=== PATIENT | female | born 1980 | race Caucasian/White ===

== ENCOUNTER 2016-05-21 19:10 | Emergency (ER) | payer OTHER ==
[2016-05-21 17:40] LABS: INFLUENZA A NEG (NEG); INFLUENZA B NEG (NEG)
[2016-05-21 19:01] LABS: URINE SOURCE CLEAN CATCH
[2016-05-21 19:09] LABS: URINE APPEARANCE CLEAR; URINE BILIRUBIN NEG (NEG); URINE BLOOD 1+ (NEG); URINE COLOR YELLOW; URINE GLUCOSE NEG (NEG); URINE KETONE TRACE (NEG); URINE LEUKOCYTE ESTERASE TRACE (NEG); URINE NITRATE NEG (NEG); URINE PROTEIN TRACE (NEG)
[~2016-05-21 19:10] MED LIST: AMOXICILLIN PO; FLEXERIL PO; FLEXERIL10 MG PO; KETOPROFEN PO; LORTAB 10-5001 EACH PO; MEDROL DOSEPAK4 MG DOB; MEDROL PO; MEDROL4 MG/DOSE- PO; NO MEDICATIONS; ORUDIS75 M1 PO; PREDNISONE PO; ULTRAM PO; VOLTAREN75 MG PO; ZITHROMAX500 MG PO
[2016-05-21 19:12] LABS: CULTURE INDICATED? YES; URINE BACTERIA AUWI NEG (NEGATIVE); URINE SQUAMOUS EPITHELIAL CELL OCC /[HPF]
[2016-05-21 19:25] LABS: URINE MUCUS PRESENT
== END 2016-05-21 20:18 | disposition home or self-care (01) ==
LOC: CED 19:10
PROVIDERS: Emergency Medicine; Nurse Practitioner
DX: J02.0 Streptococcal pharyngitis (principal); N39.0 Urinary tract infection, site not specified; F17.210 Nicotine dependence, cigarettes, uncomplicated
CPT/HCPCS: 81003; 84703; 87086; 87651; 87804; 87880; 96372; 99283; J1100

== ENCOUNTER 2016-08-23 16:59 | Emergency (ER) | payer OTHER ==
--- NOTE | ~2016-08-23 | CR181 ---
[facility] A Service of [facility] RADIOLOGY TEXT RESULTS PATIENT: NEHEMIAS FERNÁNDEZ LOCATION: [facility] : 82 UNIT #: [id number] AGE: [address]: Karley Ramirez SEX: F ORDER DR: [id number] [facility] [address] [place], [place] [address] [id number] MR#: [id number] Acc #: [id number] NAME: NEHEMIAS FERNÁNDEZ : 1980 SEX: F STUDY DATE/TIME: 08/23/2016 18:28 UNIT: [facility] ROOM: STUDY DESCRIPTION: CR Lumbar Spine 2 or 3 Views Attending Physician: Karley Ramirez Pa-C Ordering Physician: Karley Ramirez Pa-C Primary Care Physician: Esau Barnett M.D. MEDICAL IMAGING REPORT This report is preliminary unless electronic signature is present EXAM 3 views lumbar spine DATE: 08/23/2016 HISTORY Low back and mid back pain for 2 days after twisting back while making her bed. History of sciatic nerve pain. No history of pain radiation. COMPARISON Lumbar spine radiographs 02/23/2010. FINDINGS No lumbar spine fracture or subluxation. There is mild diminished disc height with vacuum disc phenomenon L5-S1. No significant facet arthropathy is identified. Tiny anterior-inferior osteophyte is present L5. No sacroiliac joint diastasis is seen. IMPRESSION Mild diminished disc height, vacuum disc phenomenon at L5-S1. No acute osseous abnormality. Dictated by... Jayda Gutierrez M.D. THIS IS AN ELECTRONICALLY VERIFIED REPORT Jayda Gutierrez M.D. at 08/24/2016 10:06 AM RENEE/alaina TD: 08/24/2016 05:28 JOB #: [id number] [facility] A Service of [facility] RADIOLOGY TEXT RESULTS PATIENT: NEHEMIAS FERNÁNDEZ LOCATION: [facility] : 82 UNIT #: [id number] AGE: [address]: Karley Ramirez SEX: F ORDER DR: MEDICAL IMAGING REPORT Page 1 of 1 COPY
[2016-08-23 18:21] LABS: URINE SOURCE CLEAN CATCH
[2016-08-23 18:28] LABS: URINE APPEARANCE CLEAR; URINE BILIRUBIN NEG (NEG); URINE BLOOD NEG (NEG); URINE COLOR YELLOW; URINE GLUCOSE NEG (NEG); URINE KETONE NEG (NEG); URINE LEUKOCYTE ESTERASE NEG (NEG); URINE NITRATE NEG (NEG); URINE PROTEIN NEG (NEG); URINE SPECIFIC GRAVITY 1.017 (1.003-1.035)
[2016-08-23 18:52] LABS: CULTURE INDICATED? NO
== END 2016-08-23 19:17 | disposition home or self-care (01) ==
LOC: CFTX 16:59 → CED 16:59 → CFTX 17:14
PROVIDERS: Physician Assistant Medical
DX: M54.5 Low back pain (principal); F17.210 Nicotine dependence, cigarettes, uncomplicated
CPT/HCPCS: 72100; 81003; 84703; 99283

== ENCOUNTER 2016-10-25 21:52 | Emergency (ER) | payer OTHER | END 2016-10-26 01:13 | disposition home or self-care (01) | LOC: CED 21:52 → CFTX 21:52 | DX: L03.116 Cellulitis of left lower limb (principal); W57.XXXA Bitten or stung by nonvenomous insect and other nonvenomous arthropods, initial encounter; Y92.9 Unspecified place or not applicable; F17.210 Nicotine dependence, cigarettes, uncomplicated | CPT/HCPCS: 99283 ==

== ENCOUNTER 2016-11-29 10:14 | Emergency (ER) | payer OTHER ==
[~2016-11-29] VITALS: Ht 160 cm; Wt 72.6 kg
== END 2016-11-29 11:21 | disposition home or self-care (01) ==
LOC: CED 10:14 → CFTX 10:14
DX: J02.9 Acute pharyngitis, unspecified (principal); F17.200 Nicotine dependence, unspecified, uncomplicated
CPT/HCPCS: 87651; 96372; 99283; J0561